=== PATIENT | female | born 1970 | race Caucasian/White ===

== ENCOUNTER 2016-11-04 12:38 | Emergency (ER) | payer OTHER | END 2016-11-04 15:27 | disposition left against medical advice (07) | LOC: UCEAST 12:38 | DX: J06.9 Acute upper respiratory infection, unspecified (principal); Z53.21 Procedure and treatment not carried out due to patient leaving prior to being seen by health care provider ==

== ENCOUNTER 2017-02-09 12:13 | Emergency (ER) | payer SELFPAY ==
[2017-02-09 13:34] VITALS: BP 140/90
--- NOTE | 2017-02-09 13:48 | UC ---
UC General HPI - HPI Summary HPI Summary: complaint of bug bite with red area that she noticed it yesterday this morning it has become bigger and more painful feel fatigued today wheezing more often since she has been smoking more the last 5 days s/t friends suicide has run out of albuterol denies fever used some diclofenac today on red area with relief states last tetanus 2016 - History of Current Complaint Chief Complaint: [facility] Stated Complaint: BUG BITE Time Seen by Provider: 02/09/17 13:31 Hx Obtained From: Patient - Allergy/Home Medications Allergies/Adverse Reactions: Allergies Allergy/AdvReac Type Severity Reaction Status Date / Time No Known Allergies Allergy Verified 02/09/17 13:33 PMH/Surg Hx/FS Hx/Imm Hx Previously Healthy: Yes Respiratory History: COPD - Surgical History Surgical History: None - Family History Known Family History: Negative: Cardiac Disease, Hypertension, Diabetes - Social History Occupation: Employed Full-time Lives: With Family Alcohol Use: Occasionally Substance Use Type: None Smoking Status (MU): Heavy Every Day Tobacco Smoker Amount Used/How Often: 1/2 ppd Cessation Counseling: Patient Advised to Stop Review of Systems Constitutional: Negative Skin: Rash Eyes: Negative ENT: Negative Respiratory: Negative Cardiovascular: Negative Gastrointestinal: Negative Genitourinary: Negative Motor: Negative Neurovascular: Negative Musculoskeletal: Negative Neurological: Negative Psychological: Negative All Other Systems Reviewed And Are Negative: Yes Physical Exam Triage Information Reviewed: Yes Appearance: No Pain Distress, Well-Nourished Vital Signs: Initial Vital Signs Temp 96.9 F 02/09/17 13:29 Pulse 102 02/09/17 13:29 Resp 20 02/09/17 13:29 BP 140/90 02/09/17 13:29 Pulse Ox 100 02/09/17 13:29 Vital Signs Reviewed: Yes Eyes: Positive: Conjunctiva Clear ENT: Positive: Pharynx normal, TMs normal Neck: Positive: No Lymphadenopathy Respiratory: Positive: No respiratory distress, No accessory muscle use, Wheezing Cardiovascular: Positive: RRR, No Murmur, Pulses Normal Abdomen Description: Positive: Nontender, Soft Bowel Sounds: Positive: Present Musculoskeletal: Positive: No Edema Neurological: Positive: Alert Psychological Exam: Normal Skin: Positive: Other - 10x5.5cm area of erythema warm to touch surrounding bite site Course/Dx - Course Course Of Treatment: exam completed. cellulitis from spider bite. will also rx for albuterol for COPD excerbation - Differential Dx - Multi-Symptom Provider Diagnoses: COPD excerbation, cellulitis Discharge - Discharge Plan Condition: Stable Disposition: HOME Prescriptions: Albuterol HFA INHALER* [Ventolin HFA Inhaler*] 2 puff INH Q4H PRN #1 mdi PRN Reason: Wheezing Cephalexin CAP* [Keflex CAP*] 500 mg PO QID #28 cap predniSONE TAB* [Deltasone TAB*] 50 mg PO DAILY #5 tab Patient Education Materials: Cellulitis (ED), COPD (Chronic Obstructive Pulmonary Disease) (ED) Referrals: Mio Coats MD [Primary Care Provider] - Additional Instructions: Please start antibiotic and prednisone and albuterol as directed Increase fluids and rest Take acetaminophen or ibuprofen for pain If area of redness increases, pain increases or you develop a fever return to urgent care Please review your discharge instructions. If your symptoms do not improve please call your primary care provider or return to urgent care Your blood pressure is elevated. Please contact your primary care provider within 1 -4 weeks for further evaluation..
== END 2017-02-09 14:12 | disposition home or self-care (01) ==
LOC: UCEAST 12:13
DX: J44.1 Chronic obstructive pulmonary disease with (acute) exacerbation (principal); F17.210 Nicotine dependence, cigarettes, uncomplicated; L03.90 Cellulitis, unspecified
CPT/HCPCS: 99212; G0463